=== PATIENT | male | born 1985 | race Caucasian/White ===

== ENCOUNTER 2022-04-12 13:11 | Emergency (ER) | payer OTHER ==
[~2022-04-12] VITALS: Ht 170.2 cm; Wt 70.5 kg
[2022-04-12] MEDS ORDERED: ADDE1TAB14 PO (13:18)
[2022-04-12] MEDS ORDERED: DERMABOND TOPICAL SKIN ADHESIVE TOP ONE (15:40)
[2022-04-12 15:56] VITALS: BP 136/84
== END 2022-04-12 16:35 | disposition home or self-care (01) ==
LOC: M ED 13:11
DX: S01.01XA Laceration without foreign body of scalp, initial encounter (principal); W22.8XXA Striking against or struck by other objects, initial encounter; Y92.9 Unspecified place or not applicable; Y93.9 Activity, unspecified; Y99.0 Civilian activity done for income or pay